=== PATIENT | female | born 1970 | race Caucasian/White ===

== ENCOUNTER 2023-07-11 08:58 | Emergency (ER) | payer OTHER, SELFPAY ==
[2023-07-11 09:01] VITALS: BP 149/87; PULSE 76; RESP 16; TEMP 36.9; O2SAT 98; BMI 26.6
--- NOTE | 2023-07-11 09:12 | XR_ITS ---
The [address] [address] Patient Name: BLADE ACEVES MRN: [id number] date: 1970 Sex: F Assigned Patient Location: ER Current Patient Location: ER Accession/Order Number: [id number] Exam Date: 07/11/2023 09:30 Report Date: 07/11/2023 09:53 At the request of: RON BOYLE Procedure: XR knee RT 3V PROCEDURE: XR knee RT 3V COMPARISON: None. HISTORY: pain FINDINGS: BONES:No fracture, acute abnormality, or significant arthropathy. SOFT TISSUES:Negative. No visible soft tissue swelling. EFFUSION:Moderate suprapatellar joint effusion OTHER: Negative. XR/XR knee RT 3V IMPRESSION: Joint effusion Electronically authenticated by: DEO DUNBAR Date: 07/11/2023 09:53
--- NOTE | 2023-07-11 09:17 | ED.LOWEXI1 ---
HPI - Extremity Injury (Lower) General Chief Complaint: Extremity Injury, Lower Stated Complaint: LOWER EXTREMITY INJURY Time Seen by Provider: 07/11/23 09:01 Source: patient Mode of arrival: Wheelchair History of Present Illness HPI Narrative: 53-year-old female presents for right knee pain. She was walking up some steps today and felt a popping sensation. She has had some soreness in it recently particularly when she is walking the dog and the dog with a jerk on the leash. She did not fall and sustained no other injury today. It hurts a great deal to walk on it. Related Data Previous Rx's Medication Instructions Recorded acetaminophen 300 mg-codeine 30 mg 1 tab PO Q6H PRN pain 5 days #20 07/11/23 tablet tabs ibuprofen 800 mg tablet 800 mg PO Q8H PRN pain #20 tabs 07/11/23 Allergies Allergy/AdvReac Type Severity Reaction Status Date / Time No Known Drug Allergies Allergy Verified 07/11/23 09:04 Review of Systems ROS Narrative A ten point review of systems is negative except as noted above. Exam Narrative Exam Narrative: Nurses note and vital signs reviewed and patient is not hypoxic. General: The patient appears well and in no apparent distress. Patient is resting comfortably on cart. Skin: Warm, dry, no pallor noted. There is no rash noted. Head: Normocephalic, atraumatic Eye: Normal conjunctiva, no drainage Ears, Nose, Mouth, and Throat: oral mucosa is moist. Nares patent. Cardiovascular: Regular Rate and Rhythm Respiratory: Patient is in no distress, no accessory muscle use, lungs are clear to auscultation, no wheezing, rales or rhonchi Back: non-tender GI: Soft and nontender Musculoskeletal: The right knee is examined. There is no bruising or swelling or erythema. It is not warm to touch. The knee joint is stable. Neurological: A&O, normal speech Psychiatric: Cooperative Constitutional Vital Signs, click to edit/add: Last Vital Signs Temp 98.5 F 07/11/23 09:01 Pulse 76 07/11/23 09:01 Resp 16 07/11/23 09:01 BP 149/87 H 07/11/23 09:01 Pulse Ox 98 07/11/23 09:01 O2 Del Method Room Air 07/11/23 09:01 Course Vital Signs Vital signs: Vital Signs Temperature 98.5 F 07/11/23 09:01 Pulse Rate 76 07/11/23 09:01 Respiratory Rate 16 07/11/23 09:01 Blood Pressure 149/87 H 07/11/23 09:01 Pulse Oximetry 98 07/11/23 09:01 Oxygen Delivery Method Room Air 07/11/23 09:01 Temperature 98.5 F 07/11/23 09:01 Pulse Rate 76 07/11/23 09:01 Respiratory Rate 16 07/11/23 09:01 Blood Pressure 149/87 H 07/11/23 09:01 Pulse Oximetry 98 07/11/23 09:01 Oxygen Delivery Method Room Air 07/11/23 09:01 MDM - Extremity Injury (Lower) MDM Narrative Medical decision making narrative: X-rays are negative per radiologist for fracture but showed knee effusion. Knee immobilizer applied, application checked by me and found to be appropriate. She will follow-up with orthopedics and was provided pain medication. Treatment diagnosis and follow-up were discussed with the patient Differential Diagnosis Differential diagnosis: Likely acute internal derangement of knee and other (Effusion, fracture) Imaging Data Knee x-ray: Radiologist's impression: ITS Impressions Knee X-Ray 07/11/23 09:12 IMPRESSION: Joint effusion Electronically authenticated by: DEO DUNBAR Date: 07/11/2023 09:53 Discharge Plan Discharge Chief Complaint: Extremity Injury, Lower Clinical Impression: Right knee sprain Patient Disposition: Home, Self-Care Time of Disposition Decision: 10:19 Condition: Good Mode of Transportation: Private Vehicle Prescriptions / Home Meds: New acetaminophen-codeine 300-30 mg tablet 1 tab PO Q6H PRN (Reason: pain) 5 Days Qty: 20 0RF ibuprofen 800 mg tablet 800 mg PO Q8H PRN (Reason: pain) Qty: 20 0RF Instructions: Knee Sprain (ED) Stand Alone Forms: Portal Instructions Referrals: GERALDO CRUZ [Primary Care Provider] - 1 week
== END 2023-07-11 10:49 | disposition home or self-care (01) ==
PROVIDERS: Emergency Provider Emergency Medicine; PCP Family Medicine
DX: S83.91XA Sprain of unspecified site of right knee, initial encounter (principal); X50.9XXA Other and unspecified overexertion or strenuous movements or postures, initial encounter
CPT/HCPCS: 73562; 99283

== ENCOUNTER 2023-07-25 12:18 | Outpatient (OUT) | payer OTHER, SELFPAY ==
--- NOTE | 2023-07-25 12:22 | MR_ITS ---
The [place] [id number] Patient Name: BLADE ACEVES MRN: [id number] date: 1970 Sex: F Assigned Patient Location: MRI Current Patient Location: MRI Accession/Order Number: [id number] Exam Date: 07/25/2023 12:40 Report Date: 07/25/2023 13:53 At the request of: DOUG NAM Procedure: MR knee RT wo con MR knee RT wo con, 07/25/2023 12:40 PM EST INDICATION: acute pain of right knee M25.561 COMPARISON: Prior x-ray dated 07/11/2023 TECHNIQUE: Multiplanar and multisequential MR images of the right knee were obtained without contrast. FINDINGS: Meniscus: There is T2 prolongation within the posterior horn of the medial meniscus with no deformity or definite tear likely mucoid degeneration. Otherwise, no abnormality of menisci is noted. No abnormality of meniscal roots is noted. Ligaments: The ACL, PCL, LCL, MCL and iliotibial tract are unremarkable. Cartilage: There is focal fissuring and partial-thickness defect (less than 50%) the femoral condyles. The remainder of cartilages are unremarkable for age. Bone: There is no bone marrow edema. No osseus lesion. No acute fracture or dislocation. Muscles and tendons: The visualized portions of muscles and its tendons are unremarkable. There is trace intra-articular joint effusion. MR/MR knee RT wo con IMPRESSION: Mild chondrosis of the femoral condyles. Otherwise, no significant abnormality is noted. Electronically authenticated by: RADHA ESPINAL Date: 07/25/2023 13:53
== END 2023-07-25 12:19 | disposition home or self-care (01) ==
LOC: MRI 12:18
PROVIDERS: PCP Family Medicine; Visit Provider Orthopaedic Surgery
DX: M25.561 Pain in right knee (principal)
CPT/HCPCS: 73721